=== PATIENT | female | born 1995 | race Hispanic/Latino ===

== ENCOUNTER 2018-04-05 10:42 | Emergency (ER) | payer SELFPAY ==
[2018-04-05] MEDS ORDERED: Ketorolac Tromethamine 30 MG/ML VIAL ONE (12:26)
== END 2018-04-05 12:40 | disposition home or self-care (01) ==
LOC: ERS 10:42
DX: S39.012A Strain of muscle, fascia and tendon of lower back, initial encounter (principal); X50.9XXA Other and unspecified overexertion or strenuous movements or postures, initial encounter
CPT/HCPCS: 96372; J1885

== ENCOUNTER 2018-10-11 08:59 | Emergency (ER) | payer SELFPAY ==
[2018-10-11] MEDS ORDERED: Ketorolac Tromethamine 30 MG/ML VIAL ONE (09:34)
== END 2018-10-11 10:01 | disposition home or self-care (01) ==
LOC: ERS 08:59
DX: M54.5 Low back pain (principal)
CPT/HCPCS: 96372; J1885

== ENCOUNTER 2018-10-12 14:31 | Emergency (ER) | payer SELFPAY | END 2018-10-12 16:37 | disposition home or self-care (01) | LOC: ERS 14:31 | DX: M54.42 Lumbago with sciatica, left side (principal) | CPT/HCPCS: 99281 ==

== ENCOUNTER 2020-01-13 07:30 | Emergency (ER) | payer SELFPAY | END 2020-01-13 08:16 | disposition home or self-care (01) | LOC: ERS 07:30 | DX: H60.92 Unspecified otitis externa, left ear (principal) | CPT/HCPCS: 99282 ==

== ENCOUNTER 2022-08-31 09:01 | Emergency (ER) | payer OTHER | END 2022-08-31 12:00 | disposition home or self-care (01) | LOC: ERS 09:01 | DX: B34.9 Viral infection, unspecified (principal); Z20.822 Contact with and (suspected) exposure to COVID-19; Z79.84 Long term (current) use of oral hypoglycemic drugs | CPT/HCPCS: 87804; 99283; U0003; U0005 ==

== ENCOUNTER 2022-09-29 08:14 | Emergency (ER) | payer OTHER ==
[2022-09-29] MEDS ORDERED: Ketorolac Tromethamine 30 MG/ML VIAL ONE (09:13)
[2022-09-29] MEDS ORDERED: Lidocaine 1% w/Epinephrine 1:100K 20 ML VIAL ONE (09:18)
== END 2022-09-29 10:11 | disposition home or self-care (01) ==
LOC: ERS 08:14
DX: L02.91 Cutaneous abscess, unspecified (principal)
CPT/HCPCS: 10060; 96372; J1885

== ENCOUNTER 2022-11-01 08:06 | Emergency (ER) | payer OTHER | END 2022-11-01 10:51 | LOC: ERS 08:06 | DX: Z53.21 Procedure and treatment not carried out due to patient leaving prior to being seen by health care provider (principal) ==

== ENCOUNTER 2024-03-03 18:43 | Emergency (ER) | payer SELFPAY ==
[2024-03-03] MEDS ORDERED: Ketorolac Tromethamine 30 MG (1 mL) VIAL ONE (18:59)
== END 2024-03-03 19:20 | disposition home or self-care (01) ==
LOC: ERS 18:43
DX: K04.01 Reversible pulpitis (principal); Z87.891 Personal history of nicotine dependence
CPT/HCPCS: 99282; J1885

== ENCOUNTER 2024-05-27 15:42 | Emergency (ER) | payer OTHER ==
[2024-05-27] MEDS ORDERED: hydrOXYzine 25 MG TAB ONE (17:37)
== END 2024-05-27 18:06 | disposition home or self-care (01) ==
LOC: ERS 15:42
DX: F41.9 Anxiety disorder, unspecified (principal); I10 Essential (primary) hypertension; Z87.891 Personal history of nicotine dependence
CPT/HCPCS: 99283

== ENCOUNTER 2025-04-10 20:10 | Emergency (ER) | payer BC, OTHER | END 2025-04-10 22:20 | disposition home or self-care (01) | LOC: ERS 20:10 | DX: B34.9 Viral infection, unspecified (principal); I10 Essential (primary) hypertension; Z87.891 Personal history of nicotine dependence | CPT/HCPCS: 71046; 87081; 87428; 87430 ==

== ENCOUNTER 2025-07-22 10:28 | Emergency (ER) | payer BC, OTHER ==
[2025-07-22] MEDS ORDERED: Amoxicillin/Potassium Clav 875 MG TAB ONE (11:00)
== END 2025-07-22 11:17 | disposition home or self-care (01) ==
LOC: ERS 10:28
DX: H66.92 Otitis media, unspecified, left ear (principal); R21 Rash and other nonspecific skin eruption; I10 Essential (primary) hypertension; Z79.899 Other long term (current) drug therapy; Z87.891 Personal history of nicotine dependence
CPT/HCPCS: 99282